=== PATIENT | male | born 1980 | race Caucasian/White ===

== ENCOUNTER 2018-03-18 10:07 | Observation (INO) | payer OTHER ==
[~2018-03-18] VITALS: Ht 185.4 cm; Wt 91.7 kg
[~2018-03-18 10:07] MED LIST: ALEVE220 M2 PO; FLEXERIL OR; FLEXERIL PO; IBUPROFEN800 MG PO; NAPROSYN500 MG PO; TRAMADOL HCL50 MG PO; ULTRAM50 M1 PO; ZOLOFT100 MG PO; [UNRECOGNIZED DRUG - OTHER]
[2018-03-18 11:08] LABS: HEMATOCRIT 33.8 % (39.0-50.0); HEMOGLOBIN 11.7 g/dl (14.0-18.0); IMMATURE GRANULOCYTES 0.3 % (0.0-5.0); MEAN CELL VOLUME 90.4 fL CALC (80.0-100.0); MEAN CORPUSCULAR HGB 31.3 pG CALC (26.0-32.0); MEAN CORPUSCULAR HGB CONC 34.6 g/L CALC (32.0-36.0); NEUT# 4.5 thou/uL (1.82-7.42); RED BLOOD COUNT 3.74 mill/uL (4.70-6.10); RED CELL DISTRI WIDTH 12.6 % (11.5-15.5)
[2018-03-18 11:18] LABS: ALBUMIN 4.1 g/dL (3.2-5.0); ALKALINE PHOSPHATASE 54 u/l (38-126); ANION GAP 13 (6-22 (CALC)); BUN 7 mg/dL (9-20); BUN/CREATININE RATIO 10 (12-20 (CALC)); CARBON DIOXIDE 33 mmol/l (22-30); CHLORIDE 103 mmol/l (95-108); CREATININE 0.7 mg/dL (0.7-1.3); GFR > 60 ML/MIN (>=60 (CALC)); GFR FOR AFR.AMER. > 60 ML/MIN (>=60 (CALC)); POTASSIUM 4.4 mmol/l (3.5-5.1); SGOT/AST 20 u/l (17-59); SGPT/ALT 22 u/l (21-72); SODIUM 144 mmol/l (137-146); TOTAL PROTEIN 7.5 g/dL (6.3-8.2)
[2018-03-18 11:24] LABS: D-DIMER 0.2 mg/L (0.19-0.60); PROTHROMBIN TIME 11.4 SECONDS (9.0-12.5)
[2018-03-18 11:29] LABS: MYOGLOBIN 27 ng/mL (0 - 121)
[2018-03-18] MEDS ORDERED: RISPERIDONE2 MG PO (11:34)
[2018-03-18] MEDS ORDERED: DOCUSATE CAL240 MG PO (11:35)
[2018-03-18] MEDS ORDERED: SERTRALINE25 MG PO (11:35)
[2018-03-18 12:33] LABS: BARBITURATES NEGATIVE (NEGATIVE); COCAINE NEGATIVE (NEGATIVE); METHADONE NEGATIVE (NEGATIVE); OXCYCODONE NEGATIVE (NEGATIVE); TETRAHYDROCANNABIONOL NEGATIVE (NEGATIVE); TRICYLIC ANTIDEPRESSANTS NEGATIVE (NEGATIVE)
[2018-03-18 12:37] LABS: URINE BILIRUBIN - DIPSTICK NEGATIVE (NEGATIVE); URINE BLOOD DIPSTICK NEGATIVE (NEGATIVE); URINE COLOR YELLOW; URINE GLUCOSE - DIPSTICK NEGATIVE (NEGATIVE); URINE KETONE NEGATIVE (NEGATIVE); URINE LEUK ESTERASE NEGATIVE (NEGATIVE); URINE NITRITE - DIPSTICK NEGATIVE (Negative); URINE PROTEIN - DIPSTICK NEGATIVE (NEG-TRACE); URINE SPECIFIC GRAVITY <=1.005; URINE UROBILINOGEN - DIPSTICK 0.2 E.U./dL (0.2)
[2018-03-18 12:39] LABS: URINE CLARITY CLEAR
[2018-03-18 14:01] VITALS: BP 107/71
[2018-03-18 20:10] VITALS: BP 101/63
[2018-03-18 23:36] VITALS: BP 98/63
[2018-03-19 04:10] VITALS: BP 105/68
[2018-03-19 06:12] LABS: CHOLESTEROL HDL RATIO 3.2 (<4.4 (CALC)); MAGNESIUM 1.6 mg/dL (1.6-2.3)
[2018-03-19 08:09] VITALS: BP 116/78
[2018-03-19 11:09] VITALS: BP 98/60
[2018-03-19] MEDS ORDERED: ASPIRIN EC325 MG PO (13:12)
[2018-03-19] MEDS ORDERED: DIGOXIN0.125 MG PO (13:12)
== END 2018-03-19 15:04 | DRG 310 ==
LOC: ED 10:07 → ED-I 11:43 → ED 12:20 → MS2 12:21
PROVIDERS: Emergency Medicine; ADMIT Internal Medicine; ATTEND Internal Medicine
DX: I48.0 Paroxysmal atrial fibrillation (principal); F99 Mental disorder, not otherwise specified; M06.9 Rheumatoid arthritis, unspecified
CPT/HCPCS: G0378; J1650

== ENCOUNTER 2020-10-26 01:58 | Emergency (ER) | payer SELFPAY ==
[~2020-10-26] VITALS: Ht 180.3 cm; Wt 104.0 kg
[~2020-10-26 01:58] MED LIST changes: +ASPIRIN EC325 MG PO; +DIGOXIN0.125 MG PO; +DOCUSATE CAL240 MG PO; +RISPERIDONE2 MG PO; +SERTRALINE25 MG PO
[2020-10-26 02:40] LABS: HEMATOCRIT 38.9 % (39.0-50.0); HEMOGLOBIN 13.1 g/dl (14.0-18.0); IMMATURE GRANULOCYTES 0.3 % (0.0-5.0); MEAN CELL VOLUME 86.3 fL CALC (80.0-100.0); MEAN CORPUSCULAR HGB CONC 33.7 g/dL CAL (32.0-36.0); NEUT# 6.08 thou/uL (1.82-7.42); RED BLOOD COUNT 4.51 mill/uL (4.70-6.10); RED CELL DISTRI WIDTH 12.7 % (11.5-15.5)
[2020-10-26 02:41] LABS: URINE BILIRUBIN - DIPSTICK NEGATIVE (NEGATIVE); URINE BLOOD DIPSTICK SMALL (NEGATIVE); URINE COLOR YELLOW; URINE GLUCOSE - DIPSTICK NEGATIVE (NEGATIVE); URINE KETONE NEGATIVE (NEGATIVE); URINE LEUK ESTERASE NEGATIVE (NEGATIVE); URINE PH 5.5 (4.5-8.0); URINE PROTEIN - DIPSTICK NEGATIVE (NEG-TRACE); URINE SPECIFIC GRAVITY 1.025; URINE UROBILINOGEN - DIPSTICK 0.2 E.U./dL (0.2)
[2020-10-26 02:43] LABS: URINE NITRITE - DIPSTICK NEGATIVE (Negative)
[2020-10-26 02:47] LABS: URINE BACTERIA FEW hpf; URINE EPITHELIAL CELLS FEW EPI/hpf (0-FEW); URINE WBC 0-2 WBC/hpf (0-5)
[2020-10-26 02:54] LABS: ALBUMIN 4.7 g/dL (3.2-5.0); ALKALINE PHOSPHATASE 44 u/l (38-126); ANION GAP 14 (6-22 (CALC)); BILIRUBIN, TOTAL 3.4 mg/dL (0.0-1.4); BUN 7 mg/dL (9-20); BUN/CREATININE RATIO 9 (12-20 (CALC)); CARBON DIOXIDE 31 mmol/l (22-30); CHLORIDE 99 mmol/l (95-108); CREATININE 0.8 mg/dL (0.7-1.3); GFR > 60 ML/MIN (>=60 (CALC)); GFR FOR AFR.AMER. > 60 ML/MIN (>=60 (CALC)); POTASSIUM 3.8 mmol/l (3.5-5.1); SGOT/AST 18 u/l (17-59); SODIUM 140 mmol/l (137-146); TOTAL PROTEIN 7.7 g/dL (6.3-8.2)
[2020-10-26 03:06] LABS: MYOGLOBIN 117 ng/mL (0 - 121)
[2020-10-26 06:00] VITALS: BP 120/70
[2020-10-27] MEDS ORDERED: KEFLEX500 M1 PO ×2 (09:31→10:18)
[2020-10-27] MEDS ORDERED: MOTRIN800 MG PO ×2 (09:31→10:18)
== END 2020-10-26 06:02 | disposition home or self-care (01) | DRG 313 ==
LOC: ED 01:58
PROVIDERS: Emergency Medicine
DX: R07.89 Other chest pain (principal); I48.91 Unspecified atrial fibrillation; F79 Unspecified intellectual disabilities; M06.9 Rheumatoid arthritis, unspecified; Z20.822 Contact with and (suspected) exposure to COVID-19

== ENCOUNTER 2020-10-27 07:57 | Emergency (ER) | payer SELFPAY ==
[~2020-10-27] VITALS: Ht 180.3 cm; Wt 104.5 kg
[2020-10-27] MEDS ORDERED: KEFLEX500 M1 PO ×2 (09:31→10:18)
[2020-10-27] MEDS ORDERED: MOTRIN800 MG PO ×2 (09:31→10:18)
[2020-10-27 10:10] VITALS: BP 120/62
== END 2020-10-27 10:10 | disposition home or self-care (01) | DRG 607 ==
LOC: ED 07:57
DX: S90.822A Blister (nonthermal), left foot, initial encounter (principal); I48.91 Unspecified atrial fibrillation; X58.XXXA Exposure to other specified factors, initial encounter

== ENCOUNTER 2020-10-29 00:22 | Emergency (ER) | payer SELFPAY ==
[~2020-10-29] VITALS: Ht 180.3 cm; Wt 104.0 kg
[~2020-10-29 00:22] MED LIST changes: +KEFLEX500 M1 PO; +MOTRIN800 MG PO
[2020-10-29] MEDS ORDERED: BACTRIM DS1 TAB PO (00:42)
[2020-10-29 01:10] VITALS: BP 122/72
== END 2020-10-29 01:10 | disposition home or self-care (01) | DRG 603 ==
LOC: ED 00:22
DX: L03.115 Cellulitis of right lower limb (principal); S90.811A Abrasion, right foot, initial encounter; S90.822D Blister (nonthermal), left foot, subsequent encounter; T36.1X6A Underdosing of cephalosporins and other beta-lactam antibiotics, initial encounter; I48.91 Unspecified atrial fibrillation; X58.XXXA Exposure to other specified factors, initial encounter; X58.XXXD Exposure to other specified factors, subsequent encounter; Z91.128 Patient's intentional underdosing of medication regimen for other reason